=== PATIENT | female | born 1955 | race Caucasian/White ===

== ENCOUNTER 2018-10-06 19:30 | Inpatient (IN) | payer OTHER ==
[~2018-10-06] VITALS: Ht 170.2 cm; Wt 84.0 kg
[2018-10-06 19:42] VITALS: Ht 170.2 cm; Wt 84.0 kg
[2018-10-06 20:47] LABS: BASOPHIL % 0.5 % (0-2); PLATELET COUNT 236 x10^3mcL (130-400); RED CELL DISTRIBUTION WIDTH 13.6 % (11.5-14.5)
[2018-10-06 20:54] LABS: CALCIUM 8.8 mg/dL (8.5-10.1); CARBON DIOXIDE 30.4 mmol/L (21-32); CHLORIDE SERUM 106 mmol/L (98-107); CREATININE SERUM 0.8 mg/dL (0.6-1.0); GFR1 > 60 mL/min; GLUCOSE SERUM 104 mg/dL (74-106); POTASSIUM SERUM 3.9 mmol/L (3.5-5.1); SODIUM SERUM 140 mmol/L (136-145)
[2018-10-06 20:59] LABS: ALBUMIN 3.6 g/dL (3.4-5.0); ALKALINE PHOSPHATASE 106 U/L (46-116); ALT/SGPT 17 U/L (14-59); AST/SGOT 14 U/L (15-37); BILIRUBIN TOTAL 0.32 mg/dL (0.20-1.00); LIPASE 189 IU/L (73-393); TOTAL PROTEIN, SERUM 6.7 g/dL (6.4-8.2)
[2018-10-06 21:36] LABS: microscopic required? YES; urine erythrocyte NEGATIVE (NEGATIVE)
[2018-10-06 23:10] LABS: CHOLESTEROL/HDL RATIO 3.2; MAGNESIUM 1.9 mg/dL (1.8-2.4); PHOSPHOROUS 3.7 mg/dL (2.5-4.9)
[2018-10-07 00:15] VITALS: BP 117/56
[2018-10-07 05:27] VITALS: BP 114/66
[2018-10-07 06:53] LABS: CALCIUM 8.5 mg/dL (8.5-10.1); CARBON DIOXIDE 26.9 mmol/L (21-32); CHLORIDE SERUM 106 mmol/L (98-107); CREATININE SERUM 0.6 mg/dL (0.6-1.0); GFR1 > 60 mL/min; GLUCOSE SERUM 86 mg/dL (74-106); PHOSPHOROUS 3.4 mg/dL (2.5-4.9); POTASSIUM SERUM 3.7 mmol/L (3.5-5.1); SODIUM SERUM 137 mmol/L (136-145)
[2018-10-07 07:14] LABS: BASOPHIL % 0.6 % (0-2); PLATELET COUNT 233 x10^3mcL (130-400)
[2018-10-07 07:53] VITALS: BP 127/69
[2018-10-07 12:34] VITALS: BP 128/64
[2018-10-07] MEDS ORDERED: BUSPIRONE HYDR7.5 MG PO (14:06)
[2018-10-07 14:57] VITALS: BP 128/64
[2018-10-07 19:37] LABS: AMPHETAMINE QUAL UR NONE DETECTED (See below)
== END 2018-10-07 15:50 | disposition home or self-care (01) | DRG 199 ==
LOC: ED 19:30 → DU 22:43
PROVIDERS: Emergency Medicine; ADMIT Internal Medicine
DX: I16.0 Hypertensive urgency (principal); E78.5 Hyperlipidemia, unspecified; F41.9 Anxiety disorder, unspecified; I10 Essential (primary) hypertension; N39.0 Urinary tract infection, site not specified; Z68.31 Body mass index [BMI] 31.0-31.9, adult
CPT/HCPCS: 83880; 85378; 90658; J7030; Q0092